=== PATIENT | male | born 1970 | race Hispanic/Latino ===

== ENCOUNTER 2019-09-10 21:36 | Emergency (ER) | payer OTHER, SELFPAY | END 2019-09-10 23:10 | disposition home or self-care (01) | LOC: ERS 21:36 | DX: T22.611A Corrosion of second degree of right forearm, initial encounter (principal); T23.601A Corrosion of second degree of right hand, unspecified site, initial encounter; E78.00 Pure hypercholesterolemia, unspecified; X12.XXXA Contact with other hot fluids, initial encounter | CPT/HCPCS: 99283 ==

== ENCOUNTER 2020-07-24 17:44 | Emergency (ER) | payer SELFPAY ==
[2020-07-24] MEDS ORDERED: Diazepam 5 MG TAB ONE (19:59)
[2020-07-24] MEDS ORDERED: Ketorolac Tromethamine 30 MG/ML VIAL ONE (19:59)
== END 2020-07-24 20:25 | disposition home or self-care (01) ==
LOC: ERS 17:44
DX: M54.42 Lumbago with sciatica, left side (principal); E78.00 Pure hypercholesterolemia, unspecified
CPT/HCPCS: 96372; 99283; J1885

== ENCOUNTER 2023-06-02 09:15 | Emergency (ER) | payer SELFPAY ==
[2023-06-02] MEDS ORDERED: Ketorolac Tromethamine 30 MG/ML VIAL ONE (09:51)
== END 2023-06-02 10:03 | disposition home or self-care (01) ==
LOC: ERS 09:15
DX: M54.42 Lumbago with sciatica, left side (principal); L03.032 Cellulitis of left toe; E78.00 Pure hypercholesterolemia, unspecified
CPT/HCPCS: 96372; 99283; J1885

== ENCOUNTER 2025-05-26 17:30 | Emergency (ER) | payer SELFPAY ==
[2025-05-26] MEDS ORDERED: Dexamethasone 10 MG/ML VIAL ONE (19:38)
[2025-05-26] MEDS ORDERED: Ketorolac Tromethamine 30 MG (1 mL) VIAL ONE (19:39)
[2025-05-26] MEDS ORDERED: Orphenadrine Citrate 100 MG ER.TAB ONE (21:32)
== END 2025-05-26 21:39 | disposition home or self-care (01) ==
LOC: ERS 17:30
DX: M54.50 Low back pain, unspecified (principal)
CPT/HCPCS: 96372; 99283; J1100; J1885; J3010